=== PATIENT | male | born 1985 | race Caucasian/White ===

== ENCOUNTER 2019-09-30 19:45 | Inpatient (IN) | payer MEDICAID ==
[~2019-09-30] VITALS: Ht 172.7 cm; Wt 59.0 kg
[2019-09-30 19:45] VITALS: BP_SYST 202; BP_SYST 261
--- NOTE | 2019-09-30 19:45 | NUR ---
Placed in room 5 . Placed on color television console monitor, blood pressure machine and pulse oximeter. To gown for exam. Side rails up. Report given to JIMMY Farr.
--- NOTE | 2019-09-30 20:02 | NUR ---
ER Dr. Lagunas at bedside examining patient.
[2019-09-30] MEDS ORDERED: hydrALAZINE HCL 20 MG/ML VIAL IVP ONE (20:30)
[2019-09-30] MEDS ORDERED: NACL 0.9% 1,000 ML IV ONE (20:30)
[2019-09-30 20:54] LABS: BASOPHILS % (AUTO) 0.3 % (0.0-2.0); EOSINOPHILS # (AUTO) 0.1 K/uL (0.0-0.4); EOSINOPHILS % (AUTO) 0.9 % (0.0-4.0); HEMATOCRIT 41.4 % (36-54); HEMOGLOBIN 14.4 g/dL (14.0-18.0); LYMPHOCYTES # (AUTO) 1.4 K/uL (1.0-5.5); LYMPHOCYTES % (AUTO) 17.4 % (20.5-51.5); MEAN CORPUSCULAR HEMOGLOBIN 31 pg (27-31); MEAN CORPUSCULAR HGB CONC 35 % (32-36); MEAN CORPUSCULAR VOLUME 90 fL (79.0-98.0); MONOCYTES # (AUTO) 0.6 K/uL (0.0-1.0); MONOCYTES % (AUTO) 7.4 % (1.7-9.3); NEUTROPHILS # (AUTO) 5.8 K/uL (1.8-7.7); PLATELET COUNT (AUTO) 211 K/uL (130-430); RED BLOOD CELL COUNT(AUTO) 4.59 MIL/uL (4.2-6.2); RED CELL DISTRIBUTION WIDTH 13.6 % (9.0-15.0); WHITE BLOOD COUNT (AUTO) 7.8 K/uL (4.8-10.8)
[2019-09-30 21:28] LABS: CREATININE 0.58 mg/dL (0.55-1.30); POTASSIUM 3.8 mmol/L (3.5-5.1)
[2019-09-30 21:40] LABS: ALBUMIN 3.8 g/dL (3.4-4.8); TOTAL BILIRUBIN 0.5 mg/dL (0.0-1.0)
--- NOTE | 2019-09-30 21:52 | NUR ---
Mother at bedside applying cooling measures.
--- NOTE | 2019-09-30 22:00 | NUR ---
Patient AAO x 0 BIB BLS from [facility] for complaints of 8-9 episodes of diarrhea yesterday. 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 Mother at bedside states that patient has involuntary movements to his RUE tends to pull on tubings and scratch face and She requests that a rolled blanket is placed on his R AC, that his chest is covered with a pillow case, and that no condom/White catheter is placed. Mother would like patient to be kept uncovered without a gown and diaper to be placed with an opening for the penis put covered over the opening. Bed sore is noted to L buttock. Wedge is placed under R lower leg. Addendum: 09/30/19 at 2317 by [id number] Even chest rise and fall with respirations. Will continue to monitor.
[2019-09-30] MEDS ORDERED: LEVE250T2 GT (22:41)
[2019-09-30] MEDS ORDERED: ALBU2.5V7 INH (22:41)
[2019-09-30] MEDS ORDERED: BIOT1TAB16 GT (22:41)
[2019-09-30] MEDS ORDERED: TYLL650 GT (22:41)
[2019-09-30] MEDS ORDERED: CRAN1CAP5 GT (22:41)
[2019-09-30] MEDS ORDERED: LABE200T28 GT (22:41)
--- NOTE | 2019-09-30 22:41 | NUR ---
Medication reconciliation completed with information provided by med list from facility. Any prior medication reconciliation on file was reviewed and corrected.
--- NOTE | 2019-09-30 23:00 | NUR ---
Mother, Sonal, has left department at this time. Phone number is [phone].
[2019-10-01] MEDS ORDERED: hydrALAZINE HCL 20 MG/ML VIAL IVP ONE
[2019-10-01] MEDS ORDERED: HYDROcodone/ACETAMIN 5-325 MG TAB (NORCO/ VICODIN) PO PRN
[2019-10-01] MEDS ORDERED: cloNIDine HCL 0.1 MG TABLET PO PRN
[2019-10-01] MEDS ORDERED: ONDANSETRON HCL 4 MG/2 ML VIAL IVP PRN
[2019-10-01] MEDS ORDERED: ACETAMINOPHEN 650 MG/20.3 ML UDC GT PRN ×2
[2019-10-01] MEDS ORDERED: ALBUTEROL SULFATE 0.083% 2.5 MG/3 ML VIAL.NEB INH PRN
[2019-10-01] MEDS ORDERED: ACETAMINOPHEN 325 MG TABLET GT PRN
[2019-10-01] MEDS ORDERED: HYDROcodone/ACETAMIN 10-325 MG TAB GT PRN
[2019-10-01] MEDS ORDERED: LORazepam 2 MG/ML VIAL IVP PRN
--- NOTE | 2019-10-01 00:30 | NUR ---
Patient will be admitted to care of [facility]. Admitted to Telemetry unit. Will go to room 119A. Complete and up to date summary report printed. SBAR report to be given at bedside with opportunity for questions.
[2019-10-01] MEDS ORDERED: metroNIDAZOLE 500 MG TABLET GT SCH (00:35)
--- NOTE | 2019-10-01 00:44 | NUR ---
ADMISSION NOTE Received patient from ER via gurney. Patient admitted with diagnosis of Hypertention and C-Diff under Dr. Howard. Patient is awake, non verbal. Personal belongings checked and Belongings List documented. Call light within reach.
--- NOTE | 2019-10-01 00:50 | NUR ---
OPENING NOTES Patient Aox1. On 2L of oxygen via trach, attached and secured. No signs of respiratory distress and discomfort noted. IVF infusing well, patency noted. Patient has G-tube. On contact precautions. Call light with in reach. Bed locked and in lowest position. Bed alarm on. Safety precautions in place. Will continue to monitor patient
[2019-10-01 01:09] VITALS: BP_SYST 138
--- NOTE | 2019-10-01 03:00 | NUR ---
Consultation Paged Reason for Consultation: Colitis Was consult called: Y Person to be notified: Susy Consulting Physician: Jareth Garcia Stenographer Print Shop Ordering Physician: Juan Carlos Aceves Face Sheet was faxed to [phone]
[2019-10-01] MEDS: D5/0.45 NS 1,000 ML IV SCH ×3 (03:04→20:55)
--- NOTE | 2019-10-01 03:11 | NUR ---
Consultation Paged Reason for Consultation: htn Was consult called: Y Person to be notified: Rogelio Consulting Physician: Alfredo Aceves Linux System Admin Ordering Physician: Juan Carlos Aceves
--- NOTE | 2019-10-01 03:50 | NUR ---
RN ROUNDS Patient eyes were close. No signs of respiratory distress and discomfort noted. Breathing even and unlabored. IVF infusing well, patency noted. Safety precautions in place. Will continue to monitor patient.
[2019-10-01 05:18] VITALS: BP_SYST 138
--- NOTE | 2019-10-01 05:58 | NUR ---
SPOKE WITH PT MOM Spoke with patients' mom Cheyenne. Cheyenne gave instruction not to check BP right away after putting the BP cuff, to wait for a little bit before patients calms down and then caregiver can take BP. To roll a towel in patients right elbow/arm to prevent patient from pulling his trach. And patient to have minimum cover, cause per Cheyenne, he feels warm really fast. And to put patient on diaper, Mom Cheyenne was educated that our hospital doesn't diaper. Mom verbalized the understanding.
--- NOTE | 2019-10-01 06:12 | NUR ---
CLOSING NOTES/ CHLOE CARE Chloe care done with Jamilah MUÑOZ. Patient tolerated well. Patient AOX0, eyes open, nonverbal. On contact precautions maintain throughout the shift. On 2l of oxygen via Trach, attached and secured. No signs of respiratory distress and discomfort noted. Breathing even and unlabored. IVF infusing well, patency noted. Safety precautions in place. Bed locked and in lowest position. All needs met throughout the shift. Will continue to monitor until endorsed to oncoming shift nurse for continuity of care.
[2019-10-01 07:15] LABS: CALCIUM 9.2 mg/dL (8.4-11.0); CREATININE 0.42 mg/dL (0.55-1.30); POTASSIUM 3.1 mmol/L (3.5-5.1)
--- NOTE | 2019-10-01 07:25 | NUR ---
opening note patient is resting in bed, nonverbal, opens and closes eyes, educated paint line production supervisor light system and plan of care, no signs of distress at this time, 2L through trach, patient's arms are contracted and has a brace on his right arm, IV site intact with IVF running and patient tolerating well, no other needs addressed at this time, fall/safety, seizure, and contact c diff precautions in place. Addendum: 10/01/19 at 0756 by Stefanie Lazar RN seizure pads on, brake armed, three side rails up, bed alarm on, call light within reach,
[2019-10-01 07:47] LABS: BASOPHILS % (AUTO) 0.6 % (0.0-2.0); EOSINOPHILS % (AUTO) 0.7 % (0.0-4.0); HEMATOCRIT 39.5 % (36-54); HEMOGLOBIN 13.5 g/dL (14.0-18.0); LYMPHOCYTES # (AUTO) 1.5 K/uL (1.0-5.5); LYMPHOCYTES % (AUTO) 21.2 % (20.5-51.5); MEAN CORPUSCULAR HEMOGLOBIN 31 pg (27-31); MEAN CORPUSCULAR HGB CONC 34 % (32-36); MEAN CORPUSCULAR VOLUME 90 fL (79.0-98.0); MONOCYTES # (AUTO) 0.6 K/uL (0.0-1.0); MONOCYTES % (AUTO) 8.9 % (1.7-9.3); NEUTROPHILS # (AUTO) 4.9 K/uL (1.8-7.7); NEUTROPHILS % (AUTO) 68.6 % (40.0-70.0); PLATELET COUNT (AUTO) 199 K/uL (130-430); RED BLOOD CELL COUNT(AUTO) 4.38 MIL/uL (4.2-6.2); RED CELL DISTRIBUTION WIDTH 13.5 % (9.0-15.0); WHITE BLOOD COUNT (AUTO) 7.2 K/uL (4.8-10.8)
[2019-10-01 08:00] VITALS: BP_SYST 148
--- NOTE | 2019-10-01 08:05 | NUR ---
CONSULTATION PAGED REASON FOR CONSULTATION:G-TUBE , DIARRHEA WAS CONSULT CALLED?Y PERSON WHO WAS NOTIFIED:LAURA CONSULTING PHYSICIAN:FALLON AGUILERA DIRECTOR MUSEUM OR ZOO SPECIALTY:GI DIRECTOR MUSEUM OR ZOO PHONE NUMBER:[phone] REQUESTING PHYSICIAN:HUSSEIN WEINER
[2019-10-01] MEDS ORDERED: POTASSIUM CHLORIDE 40 MEQ in NS 250 ML IV ONE (08:15)
[2019-10-01] MEDS: LABETALOL HCL 100 MG TABLET GT SCH ×2 (08:54→20:56)
[2019-10-01] MEDS: levETIRAcetam 500 MG TABLET GT SCH ×2 (08:55→20:57)
[2019-10-01] MEDS: metroNIDAZOLE 500 MG TABLET GT SCH ×3 (08:55→23:59)
--- NOTE | 2019-10-01 09:07 | NUR ---
Nutrition Update Nicho Scale 11 noted. Pt admitted for HTN, C. diff. Diet: NPO BMI: 28.4 kg/m2 RD to follow per nutrition care standards.
--- NOTE | 2019-10-01 10:36 | NUR ---
rounds patient is resting in bed, no signs of distress at this time, is moving his right index finger and poking his cheek and nose, no needs addressed at this time, RT was there earlier to provide trach care, fall/safety, seizure, and contact c diff precautions in place.
--- NOTE | 2019-10-01 10:38 | NUR ---
Case mgt:S/W pt's mother Cheyenne at [phone]-she hired private care nurse to assist pt at [facility] snf--pt has been there for 5 mos-Cheyenne expressed dissatisfaction with care at [facility]-ie nurses have 15 pts, pt not being cleaned/incontinence-I encouraged her to s/w the DON or DATA ANALYTICS CHIEF SCIENTIST-she says she already has but is interested to find another SNF for her son-I explained that all snfs have pt/staff ratios that must be maintained per state laws and I encouraged her to s/w their vp digital marketing social media and crm at [facility] if possible, to look for other snf placement when pt returns there as pt will be here short term only. Cheyenne said she had to get off phone for now. NATHALY RN
[2019-10-01 12:00] VITALS: BP_SYST 128
--- NOTE | 2019-10-01 12:23 | NUR ---
rounds patient is resting in bed, no signs of distress at this time, patient has eyes opened and wiggling his thumb. spoke to the RD about tube feeding recommendation and explained to her that at [facility] he wasn't tolerating his, RD spoke to the mother about some history, I talked to someone from [facility] about if the patient got the flu shot, she said the patient's mother refused it, will ask the mother for confirmation when she comes, no other needs addressed at this time, fall/safety, seizure, contact c diff precautions in place.
--- NOTE | 2019-10-01 13:27 | NUR ---
Dietitian Recommendations * Recommend Pivot 1.5 at 35 ml/hr, increase by 10 ml Q8h to goal of 55 ml/hr, Mert BID, Free Water Flush: 200 ml Q4h via GT Provides: 2140 kcal/day, 129 gm protein/day, and 2202 ml free water/day Meets: 102% of lower end of estimated caloric needs and 92% of upper end of estimated protein needs LP, RD Please refer to Nutrition Assessment for details. Addendum: 10/01/19 at [address] Amended: Links added.
--- NOTE | 2019-10-01 14:23 | NUR ---
rounds patient is resting in bed, eyes opened, no signs of distress at this time, no needs addressed at this time, CLERICAL SUPPORT SPECIALIST provided hygiene care, fall/safety, seizure, and contact c diff precautions in place.
--- NOTE | 2019-10-01 16:33 | NUR ---
tube feeding held at this time at 1500 patient had residual over 200cc and feeding was held at this time, residual was checked again at this time and residual was still over 100cc, tube feeding continued to be held at this time, will continue to monitor, no signs of distress at this time, hygiene care complete, no other needs at this time, fall/safety, seizure, and contact c diff precautions in place.
[2019-10-01 17:18] VITALS: BP_SYST 116
--- NOTE | 2019-10-01 18:50 | NUR ---
CLOSING NOTE patient is resting in bed, nonverbal, opens and closes eyes, no signs of distress at this time, 2L through trach, patient's arms are contracted, IV site intact with IVF running and patient tolerating well, no other needs addressed at this time, fall/safety, seizure, and contact c diff precautions in place. tube feeding held at this time due to high residual, will endorse report to [facility] shift nurse to continue with care. seizure pads on, brake armed, three side rails up, bed alarm on, call light within reach,
--- NOTE | 2019-10-01 19:25 | NUR ---
CHANGE OF SHIFT; pt. awake, non verbal, O2 @ 2 liters via trach with mask. on contact isolation for c. diff. no stool all day as endorsed. on seizure precautions. will reassess later.
[2019-10-01 20:00] VITALS: BP_SYST 115
--- NOTE | 2019-10-01 20:00 | NUR ---
NOTES; VS checked. IVF infusing via left forearm. G tube feed on hold for now, will recheck residual. pt. non verbal, on trach # 7 @ 2liters of O2. cardiac pattern on sinus rhythm. pt. contracted on both upper extremities but moving rt. hand. both lower extremities flaccid., with special foot support intact. pt. girlfriend at bedside.
--- NOTE | 2019-10-01 21:30 | NUR ---
NOTES: pt. girlfriend at bedside. pt. incontinent of urine, natasha care done and repositioned, HOB elevated @ 30 degrees. rolled washcloth on rt, hand and in between his elbow due to contracture. Left upper also contracted, pt. is quadriplegic. both feet with special support intact. IVF infusing via left forearm. G tube site clean, checked residual around 40 cc, resume feeding @ 35 cc/hr. pt. with track with track mask at 2 liters of O2, 100% O2 sat.
--- NOTE | 2019-10-01 23:24 | NUR ---
NOTES: pt. eyes closed, asleep. continue to monitor.
--- NOTE | 2019-10-02 01:00 | NUR ---
NOTES: pt. asleep, no distress. continue to monitor. cardiac pattern unchanged.
[2019-10-02 01:18] VITALS: BP_SYST 118
--- NOTE | 2019-10-02 03:17 | NUR ---
NOTES: condition observed. on contact isolation, no BM. pt. repositioned.
--- NOTE | 2019-10-02 05:00 | NUR ---
NOTES: pt. incontinent of urine,partial am care/natasha care one. repositioned, awakened, was sleeping. sacral /buttock dressing changed. note easily get reddened skin. continue to monitor.
[2019-10-02] MEDS: D5/0.45 NS 1,000 ML IV SCH ×2 (05:38→16:00)
--- NOTE | 2019-10-02 06:24 | NUR ---
CLOSING NOTES; oral care done. kept HOB elevated. O2 @ 2liters via trach. no distress. g tube feed in progress. on contact isolation for c diff., no BM. for further care and assistance. suction orally with very thin secretions. will endorse to day shift.
--- NOTE | 2019-10-02 06:42 | NUR ---
NOTES: checked residual @ 180 cc. hold for now , will recheck in an hour and will endorse to day shift.
[2019-10-02 06:49] LABS: BASOPHILS % (AUTO) 0.8 % (0.0-2.0); EOSINOPHILS # (AUTO) 0.2 K/uL (0.0-0.4); EOSINOPHILS % (AUTO) 3.1 % (0.0-4.0); HEMATOCRIT 32.4 % (36-54); HEMOGLOBIN 11.2 g/dL (14.0-18.0); LYMPHOCYTES # (AUTO) 1.3 K/uL (1.0-5.5); LYMPHOCYTES % (AUTO) 26.1 % (20.5-51.5); MEAN CORPUSCULAR HEMOGLOBIN 31 pg (27-31); MEAN CORPUSCULAR HGB CONC 35 % (32-36); MEAN CORPUSCULAR VOLUME 90 fL (79.0-98.0); MONOCYTES # (AUTO) 0.5 K/uL (0.0-1.0); MONOCYTES % (AUTO) 9.9 % (1.7-9.3); NEUTROPHILS # (AUTO) 2.9 K/uL (1.8-7.7); NEUTROPHILS % (AUTO) 60.1 % (40.0-70.0); PLATELET COUNT (AUTO) 171 K/uL (130-430); RED BLOOD CELL COUNT(AUTO) 3.58 MIL/uL (4.2-6.2); RED CELL DISTRIBUTION WIDTH 13.3 % (9.0-15.0); WHITE BLOOD COUNT (AUTO) 4.9 K/uL (4.8-10.8)
[2019-10-02 07:09] LABS: C-REACTIVE PROTEIN QUANT 0.8 mg/dL (0-0.5); CALCIUM 8.5 mg/dL (8.4-11.0); CREATININE 0.39 mg/dL (0.55-1.30); POTASSIUM 3.2 mmol/L (3.5-5.1)
--- NOTE | 2019-10-02 07:40 | NUR ---
opening note patient is resting in bed, nonverbal, opens and closes eyes, educated ergonomist light system and plan of care, no signs of distress at this time, 2L through trach, patient's arms are contracted and has a brace on his right arm, IV site intact with IVF running and patient tolerating well, no other needs addressed at this time, fall/safety, seizure, and contact c diff precautions in place. seizure pads on, brake armed, three side rails up, bed alarm on, call light within reach mother was in the room, wanted to assist me with cleaning patient. Mother informed me that she does not want me to give me Keppra and labetalol, I explained to her what those medications were and she still refused for me and anyone to give those medications to him.
[2019-10-02 08:00] VITALS: BP_SYST 120
[2019-10-02] MEDS: LABETALOL HCL 100 MG TABLET GT SCH ×2 (08:09→20:37)
[2019-10-02] MEDS: levETIRAcetam 500 MG TABLET GT SCH ×2 (08:09→20:37)
[2019-10-02] MEDS ORDERED: POTASSIUM CHLORIDE 40 MEQ in NS 250 ML IV ONE (08:30)
[2019-10-02] MEDS: metroNIDAZOLE 500 MG TABLET GT SCH ×2 (08:51→15:59)
[2019-10-02 09:49] LABS: ERYTHROCYTE SEDIMENTATION RATE 12 MM/HR (0-15)
--- NOTE | 2019-10-02 10:05 | NUR ---
eve patient is resting in bed, educated on medication use and side effects, patient nonverbal, no signs of distress at this time, Dr Walter came to see patient, informed him about patient not tolerating well no tube feeding, waiting for result of KUB, no other needs at this time, fall/safety, seizure, and contact c diff precautions in place.
[2019-10-02 12:27] VITALS: BP_SYST 104
--- NOTE | 2019-10-02 12:58 | NUR ---
hygiene care done with INTERACTIVE MULTIMEDIA DESIGNER assistance, patient tolerated well, tube feeding held at his time due to residual over 200ml, will continue to monitor.
[2019-10-02] MEDS: BIOTIN GT SCH ×2 (13:57→20:38)
[2019-10-02] MEDS: KERATIN GT SCH ×2 (13:57→20:38)
[2019-10-02] MEDS: CRANBERRY EXTRACT GT SCH (13:58)
[2019-10-02] MEDS: VIT C GT SCH (13:58)
--- NOTE | 2019-10-02 14:00 | NUR ---
rounds patient is resting in bed, mom is present, updated her on wound care nurse coming to see him and wound care was done with him, hygiene care done with mom, no other needs at this time, no signs of distress at this time.
--- NOTE | 2019-10-02 14:00 | NUR ---
WOUND EVALUATION: Wound Consult received from Dr. Juan Carlos Howard. Thank you Dr. Howard for the consult. Patient received in a Rome Bed with an Isoflex GODWIN mattress with low air loss therapy initiated, awake, nonverbal, nonresponsive to verbal commands. Patient is unable to turn in bed independently. Nicho Score is an 11. Past Medical History: Hypertension, Disability, Intellectual Impairment, C. difficile infection. Recent Labs: WBC 4.9, RBC 3.58, hemoglobin 11.2, hematocrit 32.4, potassium 3.2, BUN 12, creatinine 0.39, GFR 266, glucose 143. Microbiology: Wound culture results 2 in progress. MRSA screen results negative. Extrinsic factors that delay wound healing: Immobility. Wound Assessment: 1. Right Buttock Near Ischium: Stage III pressure ulcer, present on admission. Wound bed has 95% pink tissue, 5% brown eschar at inferior aspect of wound. No odor, no drainage. Periwound intact. Surrounding tissue has blanchable erythema and dry, flaky skin. Wound measures 2.0 cm x 2.5 cm. 2. Left buttock Near Ischium: Stage III pressure ulcer, present on admission. Wound bed has 50% red tissue, 45% yellow tissue, 5% brown eschar. No odor, no drainage. Periwound intact. Surrounding tissue has blanchable erythema and dry, flaky skin. Wound measures 4.0 cm x 4.5 cm. Recommend: Cleanse wounds with normal saline. Apply moisture barrier cream to natasha-wounds. Apply Venelex ointment to wound beds. Cover with 4x4 foam dressings. Perform wound care daily, and as needed for dressing soiling or dislodgement. 3. Coccygeal area: Scar tissue with dry, flaky skin with small area of red discoloration, present on admission. Recommend: Cleanse site with normal saline. Pat dry. Apply Hydraguard barrier cream to site. Cover with 4x4 foam dressing. Perform site care daily, and as needed for dressing soiling or dislodgement. Also recommend: Reposition patient every 2 hours with pillow support and off-load pressure areas with pillows for pressure re-distribution. Offload, elevate and float bilateral heels with pillows. Perform skin care and monitor skin integrity Q shift. Use moisture barrier cream on buttocks and other moisture susceptible areas QID and as needed for soiling. Maintain patient on a low air-loss mattress.
[2019-10-02] MEDS: BALSAM PERU/CASTOR OIL 60 GM OINT...G. TP SCH (15:45)
--- NOTE | 2019-10-02 16:00 | NUR ---
scheduled medication patient is resting in bed, educated patient and mother on medication use and side effects, mother verbalized understanding, no signs of distress at this time, no other needs addressed at this time, patient tolerated well.
[2019-10-02 16:27] VITALS: BP_SYST 117
--- NOTE | 2019-10-02 18:43 | NUR ---
CLOSING NOTE patient is resting in bed, nonverbal, opens and closes eyes, no signs of distress at this time, 2L through trach, patient's arms are contracted, IV site intact with IVF running and patient tolerating well, no other needs addressed at this time, fall/safety, seizure, and contact c diff precautions in place. tube feeding continued at this time patient has less than 100ml residual. mother refuses seizure pads on the patient, mother only wants him getting his antibiotics, does not want keppra labetalol, any medication that is not flagyl she wants to be called first before giving it to him, mother only wants the wedges under him does not want u turning him with pillows, only pillow is between his legs and under his head, will endorse to digital strategy manager nurse.
--- NOTE | 2019-10-02 19:15 | NUR ---
CHANGE OF SHIFT; pt. eyes closed but easily awakened. no distress. on contact isolation for C.diff. IVF infusing via left forearm. no acute distress. pt. on trach with trach mask @ 2 liters O2. will reassess later. seire pads taken off per pt. mother request.
--- NOTE | 2019-10-02 19:29 | NUR ---
paged paged for Dr Shirley Howard, dialed . s/w Elizabeth.
--- NOTE | 2019-10-02 19:40 | NUR ---
NOTES: called Dr. Puckett;akbar and return the call, informed about pt. mom does not want medication Keppra and Trandate to be given but Flagyl ok.
[2019-10-02 20:00] VITALS: BP_SYST 126
--- NOTE | 2019-10-02 20:00 | NUR ---
NOTES: pt. non verbal, quadriplegic. both upper extremities contracted, rt. hand able to move, braces on both upper arms in place and special foot support as well. pt. father here and help removed the arm brace and the foot support. VS checked. HOB elevated. on g tube feeding continuous, will recheck residual, site cleaned with gauze dressing. O2 @ 2liters via trach with mask. cullet crusher and washer shows sinus rhythm. rolled washcloth for his rt. hand.
--- NOTE | 2019-10-02 21:00 | NUR ---
NOTES: pt. incontinent of urine, natasha care done and repositioned with wedges as pillow support. checked residual around 100 cc, continue g tube feed @ 35 cc./hr. pt. remains awake, father will stay for the night.
--- NOTE | 2019-10-02 23:31 | NUR ---
NOTES: pt. checked for cardiac technician, changed pads, tech saying a lot of artifacts and rate up, pt. still awake, moving his rt. arm and a lot of movements on chest area.
[2019-10-03 00:06] VITALS: BP_SYST 136
--- NOTE | 2019-10-03 00:10 | NUR ---
NOTES: repositioned, turn to sides. du med given per g tube. continue @ 35 cc/hr.
[2019-10-03] MEDS: metroNIDAZOLE 500 MG TABLET GT SCH ×3 (00:17→15:37)
--- NOTE | 2019-10-03 02:30 | NUR ---
NOtES: pt. checked, sleeping, ekg patches changed with lots of artifacts. pt. father at bedside. continue to monitor.
--- NOTE | 2019-10-03 04:37 | NUR ---
NOTES: condition observed. no distress. IVF patent.observed contact isolation.
--- NOTE | 2019-10-03 05:30 | NUR ---
NOTES: complete am care done/natasha care and oral care, suctioned orally. sacral dressing changed, pretty soaked with urine. turn to sides.HOB elevated.
--- NOTE | 2019-10-03 06:00 | NUR ---
NOTES: IV site on left forearm infiltrated, restarted another Iv on rt. forearm with #22 gauge by nurse Rose and resume IVF.
[2019-10-03] MEDS: D5/0.45 NS 1,000 ML IV SCH ×3 (06:05→15:37)
--- NOTE | 2019-10-03 06:32 | NUR ---
CLOSING NOTES; pt. pretty awake, father at bedside. HOB elevated, noted some coughing, stand by suction. IVF intact and infusing. checked g tube residual @ 100, resume feeding @ 35 cc/hr. condition guarded, observed isolation. no BM noted. no padded side rails per pt. mom. for further care and assistance. will endorse to day shift.
--- NOTE | 2019-10-03 07:30 | NUR ---
Opening note Patient resting in bed at this time, A/ox1, nonverbal. Family at bedside. On Gt feeding tolerating well. no residual noted. No nausea, no vomiting noted. Iv patent, intact, and infusing fluids as ordered. on contact isolation precautions for CDIff. educated family. On safety and aspiration precautions, HOB kept elevated, 3 side rails up, bed alarm on, call light within reach. Will continue to monitor.
[2019-10-03 08:00] VITALS: BP_SYST 153
--- NOTE | 2019-10-03 08:30 | NUR ---
elevated BP Patient noted with elevated BP. 153/112. father at bedside insisting it is not the blood blood. Stated to recheck once patient is relaxed.
[2019-10-03] MEDS: BALSAM PERU/CASTOR OIL 60 GM OINT...G. TP SCH (08:36)
--- NOTE | 2019-10-03 08:55 | NUR ---
BP recheck/ elevated Patients BP elevated to 158/110. Father at bedside, insisting that is not patient blood pressure and not to recheck until hours later. Educated family on importance of medications and risk for High BP. Family denying need. Stated we are refusing the blood pressure medication and keppra. reminded family for risk for seizures. father stated patient has not had seizures for the longest time. educated patient on the importance of medication and risks for not taking it. father refusing to allow for administration of medication.
[2019-10-03] MEDS: levETIRAcetam 500 MG TABLET GT SCH ×2 (09:00→21:00)
[2019-10-03] MEDS: CRANBERRY EXTRACT GT SCH (09:00)
[2019-10-03] MEDS: VIT C GT SCH (09:00)
[2019-10-03] MEDS: LABETALOL HCL 100 MG TABLET GT SCH ×2 (09:00→21:00)
[2019-10-03] MEDS: BIOTIN GT SCH ×2 (09:00→21:00)
[2019-10-03] MEDS: KERATIN GT SCH ×2 (09:00→21:00)
--- NOTE | 2019-10-03 09:00 | NUR ---
medications Family refused BP medications for patient. educated family on the importance of BP medications. Family continues o refuse. MD aware.
--- NOTE | 2019-10-03 09:51 | NUR ---
CARDIOLOGY MD DR Jovanny AGUILAR WAS PAGED DIRECTLY, RE: PT REFUSES TO TAKE BP MEDICATION.
--- NOTE | 2019-10-03 11:05 | NUR ---
rounds Patient noted with incontinence of urine. Skin care provided. Linens changed. No other needs at this time.
--- NOTE | 2019-10-03 13:20 | NUR ---
wound treatment Wound care done as ordered. skin care provided. No other needs at this time.
[2019-10-03 13:56] VITALS: BP_SYST 125
--- NOTE | 2019-10-03 15:21 | NUR ---
Social Service Note: SUPERVISOR TUMBLING AND ROLLING received order to speak with pt's family regarding pt's family refusing medications. [facility] placed call to pt's mother, Cheyenne ([phone]); Cheyenne states that pt was at [facility] for 5 months and has been at [facility] for 5 months; Cheyenne states that pt did not need blood pressure medications toward the end of his stay at [facility]. Cheyenne reports that pt also did not need blood pressure medications at the subacute unit. Cheyenne states that pt gets agitated having his blood pressure taken. Cheyenne is asking to speak to the visitor services assistant so that she can update the physician on her son's care. Cheyenne also states that pt has not been getting medications for seizures since his MACHINE PRINTER shunt was put in. Cheyenne reports that even though the medication for seizures was on the medication list that the pt was not taking them; Cheyenne has asked to have the physicians call her to discuss the plan of care and mediations for her son. Cheyenne was asking SUPERVISOR TUMBLING AND ROLLING about moving pt do a different subacute that has different staffing rations. [facility] encouraged Cheyenne to make calls to other local subacute units to confirm their staffing ratios and then see if they could accommodate pt. [facility] has faxed Cheyenne ([phone]) a list of local subacute units where she can call to check the staffing ratios. SUPERVISOR TUMBLING AND ROLLING will remain available for support and will follow up as needed.
--- NOTE | 2019-10-03 15:45 | NUR ---
skin care patient noted with episode of incontinence, skin care provided. Linens changed, no other needs.
[2019-10-03 18:08] VITALS: BP_SYST 156
--- NOTE | 2019-10-03 18:09 | NUR ---
closing note Patient resting in bed at this time, A/ox1, nonverbal. Family at bedside. On Gt feeding tolerating well. no residual noted. No nausea, no vomiting noted. Iv patent, intact, and infusing fluids as ordered. on contact isolation precautions for possible CDIff. educated family. On safety and aspiration precautions, HOB kept elevated, 3 side rails up, bed alarm on, call light within reach. All needs met.
--- NOTE | 2019-10-03 19:50 | NUR ---
ON GODWIN MATTRESS. ON HIGH FOWLERS POSITION.OBTUNDED.FLAT AFFECT.EYES OPEN.FAMILY @ THE BS.BILATERAL UPPER EXTREMITIES CONTRACTED. DRESSING ON HIS BUTTOCKS INTACT.IVF D5 1/2 NS @100ML/HR INFUSING WELL. GT FEEDING PIVOT 1.5 @ 35 ML/HR INFUSING WELL.RESIDUAL 50 ML.TELE SHOWED SR WITH BBB.AFEBRILE. TOTAL CARE.REPOSITIONED.
[2019-10-03 20:00] VITALS: BP_SYST 142
--- NOTE | 2019-10-03 21:00 | NUR ---
KURT & BP MEDS HELD ;FAMILY DOES NOT WANT THESE MEDS.
--- NOTE | 2019-10-03 22:00 | NUR ---
REPOSITIONED. NO ACUTE DISTRESS.FAMILY @ THE BS.
--- NOTE | 2019-10-04 | NUR ---
AFEBRILE.TELE SHOWED SR WITH BBB. NO ACUTE DISTRESS.
[2019-10-04 00:10] VITALS: BP_SYST 196
[2019-10-04] MEDS: metroNIDAZOLE 500 MG TABLET GT SCH ×2 (00:16→08:20)
--- NOTE | 2019-10-04 02:00 | NUR ---
GT SITE CARE DONE. REPOSITIONED.
[2019-10-04] MEDS: D5/0.45 NS 1,000 ML IV SCH (02:28)
--- NOTE | 2019-10-04 04:00 | NUR ---
AM CARE DONE WITH FAMILY.REPOSITIONED.ORAL CARE DONE.
--- NOTE | 2019-10-04 06:57 | NUR ---
ENDORSED IN NO ACUTE DISTRESS.FAMILY @ THE BS.IVF INFUSING WELL.GT FEEDINGS @ 35 ML/HR INFUSING WELL. CONDITION UNCHANGED.
[2019-10-04 07:48] LABS: BASOPHILS % (AUTO) 0.5 % (0.0-2.0); EOSINOPHILS # (AUTO) 0.1 K/uL (0.0-0.4); EOSINOPHILS % (AUTO) 1.9 % (0.0-4.0); HEMATOCRIT 39.1 % (36-54); HEMOGLOBIN 13.1 g/dL (14.0-18.0); LYMPHOCYTES # (AUTO) 1.5 K/uL (1.0-5.5); LYMPHOCYTES % (AUTO) 24.9 % (20.5-51.5); MEAN CORPUSCULAR HEMOGLOBIN 31 pg (27-31); MEAN CORPUSCULAR HGB CONC 34 % (32-36); MEAN CORPUSCULAR VOLUME 91 fL (79.0-98.0); MONOCYTES # (AUTO) 0.4 K/uL (0.0-1.0); MONOCYTES % (AUTO) 6.6 % (1.7-9.3); NEUTROPHILS % (AUTO) 66.1 % (40.0-70.0); PLATELET COUNT (AUTO) 205 K/uL (130-430); RED BLOOD CELL COUNT(AUTO) 4.29 MIL/uL (4.2-6.2); RED CELL DISTRIBUTION WIDTH 13.3 % (9.0-15.0); WHITE BLOOD COUNT (AUTO) 6.1 K/uL (4.8-10.8)
--- NOTE | 2019-10-04 08:00 | NUR ---
RN INITIAL NOTES RECEIVED PATIENT IN BED AWAKE NON VERBAL , WITH TRACH WITH 02 AT 2L/MIN , OPENS EYES SPONTANEOUSLY, PATIENT IS CONTRACTED, MOTHER AT BEDSIDE AND WITH SPECIFIC INSTRUCTION NO BP NO SEIZURE MEDS TO BE GIVEN AND MOTHER SAID SHE ALREADY DISCUSSED THIS WITH THE DRS, PATIENT WITH GTUBE FEEDING AT THIS TIME AND ONLY MEDS OK TO GIVE IS ATB,FATHER RELIEVED MOTHER AT THIS TIME.
[2019-10-04 08:03] LABS: CALCIUM 8.5 mg/dL (8.4-11.0); CREATININE 0.37 mg/dL (0.55-1.30); POTASSIUM 3.5 mmol/L (3.5-5.1)
[2019-10-04] MEDS: levETIRAcetam 500 MG TABLET GT SCH (08:16)
[2019-10-04] MEDS: LABETALOL HCL 100 MG TABLET GT SCH (08:16)
[2019-10-04] MEDS: CRANBERRY EXTRACT GT SCH (09:00)
[2019-10-04] MEDS: BIOTIN GT SCH (09:00)
[2019-10-04] MEDS: KERATIN GT SCH (09:00)
[2019-10-04] MEDS: VIT C GT SCH (09:00)
--- NOTE | 2019-10-04 10:00 | NUR ---
ROUNDS PATIENT CONT WITH CARE , PATIENT NO DISTRESS SATING 97%, PATIENT DAD AT BEDSIDE SPECIFICALLY SAID NO BP MEDS FOR THE HI BP READING ,159/95 , PAER DAD LET THE PATIENT CALM AND NO MEDS
[2019-10-04 10:51] VITALS: BP_SYST 142
--- NOTE | 2019-10-04 11:22 | NUR ---
DC Planning: late entry: faxed dc order, referral package to Jose M/Naeem Tan # [phone], tel # [phone]. He is accepting the pt back to room 30C. >> Arranged BLS, trach support fertilizer loader stand by for suctioning as needed. Booked with [facility] # [phone] garbage pick up man time at 1430. Raj,US made aware. -- DC Package placed in [facility].
[2019-10-04 12:10] VITALS: BP_SYST 159
[2019-10-04 12:30] VITALS: BP_SYST 159
--- NOTE | 2019-10-04 12:30 | NUR ---
DISCHARGE ORDER PATIENT WILL BE DC TODAY AND PICKED UP SET 1400. FATHER AT BEDSIDE AWARE
[2019-10-04 13:10] VITALS: BP_SYST 159
[2019-10-04] MEDS ORDERED: NORMAL SALINE 5 ML DISP.SYRIN IVF SCH (14:00)
[2019-10-04] MEDS: BALSAM PERU/CASTOR OIL 60 GM OINT...G. TP SCH (14:54)
[2019-10-04 16:22] VITALS: BP_SYST 153
== END 2019-10-04 15:15 | DRG 248 ==
LOC: SED 19:45 → STU 23:26
PROVIDERS: ADMIT Preventive Medicine Preventive Medicine/Occupational Environmental Medicine; ATTEND Preventive Medicine Preventive Medicine/Occupational Environmental Medicine
DX: A04.72 Enterocolitis due to Clostridium difficile, not specified as recurrent (principal); G82.50 Quadriplegia, unspecified; J96.10 Chronic respiratory failure, unspecified whether with hypoxia or hypercapnia; Z93.0 Tracheostomy status; K56.7 Ileus, unspecified; E87.1 Hypo-osmolality and hyponatremia; R47.01 Aphasia; I10 Essential (primary) hypertension; R73.9 Hyperglycemia, unspecified; G40.909 Epilepsy, unspecified, not intractable, without status epilepticus; R63.3 Feeding difficulties; Z74.01 Bed confinement status; Z79.899 Other long term (current) drug therapy; Z93.1 Gastrostomy status
CPT/HCPCS: 36415; 74018; 80048; 80053; 83605; 83735-TC; 84100-TC; 84484; 85025; 85651-TC; 86140; 87040-TC; 87081; 93306; 94760; 96361; 96374; 96375; 99285; G0378; J0360; J3480; J7030; J7050